=== PATIENT | male | born 2000 | race African-American/Black ===

== ENCOUNTER 2021-03-14 15:51 | Emergency (ER) | payer OTHER ==
[~2021-03-14] VITALS: Ht 162.6 cm; Wt 64.7 kg
[2021-03-14] MEDS ORDERED: DOXY1CAP62 PO (19:19)
[2021-03-14 19:20] LABS: APPEARANCE, URINE CLEAR (CLEAR); BILIRUBIN, URINE AUTO NEGATIVE (NEGATIVE); BLOOD, URINE BLOOD NEGATIVE (NEGATIVE); COLOR, URINE YELLOW (YELLOW); GLUCOSE, URINE (UA) AUTO NEGATIVE (NEGATIVE); KETONE, URINE AUTO TRACE mg/dL (NEGATIVE); LEUKOCYTE ESTERASE, URINE AUTO NEGATIVE (NEGATIVE); NITRITE, URINE AUTO NEGATIVE (NEGATIVE); PROTEIN, URINE AUTO 1+ mg/dL (NEGATIVE); SPECIFIC GRAVITY URINE AUTO 1.028 (1.002-1.035); UROBILINOGEN, URINE AUTO 0.2 mg/dL (0.0-2.0)
[2021-03-14] MEDS ORDERED: DOXYCYCLINE HYCLATE 100MG TABLET PO ONE (19:20)
[2021-03-14] MEDS ORDERED: cefTRIAXone 500MG VIAL (J0696 PER 250MG) IM ONE (19:20)
[2021-03-14] MEDS ORDERED: LIDOCAINE 1% SDV 5ML VIAL DILUENT ONE (19:20)
[2021-03-14 19:22] LABS: BACTERIA, URINE AUTO NEGATIVE (NEGATIVE); MUCUS, URINE SMALL (NEGATIVE); RBC, URINE AUTO 0 /HPF (0-3); SQUAMOUS EPITHELIAL CELL UR AU 2 /HPF (0-6); WBC, URINE AUTO 4 /HPF (0-3)
[2021-03-14 19:44] VITALS: BP 118/52
[2021-03-14 22:11] LABS: GC DNA AMPLIFICATION NEGATIVE (NEGATIVE)
[2021-03-15] MEDS ORDERED: FLAG500T PO (02:44)
== END 2021-03-14 19:46 | disposition home or self-care (01) ==
LOC: M ED 15:51
DX: Z20.2 Contact with and (suspected) exposure to infections with a predominantly sexual mode of transmission (principal); Z77.098 Contact with and (suspected) exposure to other hazardous, chiefly nonmedicinal, chemicals; F12.20 Cannabis dependence, uncomplicated
CPT/HCPCS: 81001; 87661; 96372; 99283; J0696

== ENCOUNTER 2021-04-01 06:37 | Emergency (ER) | payer OTHER ==
[~2021-04-01] VITALS: Ht 162.6 cm; Wt 65.9 kg
[~2021-04-01 06:37] MED LIST: DOXY1CAP62 PO; FLAG500T PO
[2021-04-01] MEDS ORDERED: FLAG500T PO (07:54)
[2021-04-01 07:59] VITALS: BP 143/73
== END 2021-04-01 07:59 | disposition home or self-care (01) ==
LOC: M ED 06:37
DX: A59.00 Urogenital trichomoniasis, unspecified (principal)